=== PATIENT | female | born 1940 | race Caucasian/White ===

== ENCOUNTER 2021-11-02 15:46 | Inpatient (IN) | payer MEDICARE, BC ==
[2021-11-02 16:18] VITALS: BMI 30.9
[2021-11-02] MEDS ORDERED: Dextrose 5% in Water 1,000 ML IV PRN (18:18)
[2021-11-02] MEDS ORDERED: Dextrose 50% Abboject 50 ML SYRINGE SLOW IVP PRN (18:18)
[2021-11-02] MEDS: Furosemide 40 MG/4 ML VIAL SLOW IVP SCH (21:19)
[2021-11-02] MEDS: Heparin 5,000 UNITS/ML VIAL SC SCH (21:19)
[2021-11-02] MEDS: Atorvastatin Calcium 40 MG TAB PO SCH (21:20)
[2021-11-02] MEDS: Carvedilol 12.5 MG TAB PO SCH (21:20)
[2021-11-02] MEDS: rOPINIRole HCl 0.25 MG TAB PO SCH (21:20)
[2021-11-02] MEDS: Gabapentin 300 MG CAP PO SCH (21:54)
[2021-11-02 23:22] LABS: SARS-CoV-2 NAA Rapid Test Not Detected (NotDetected)
[2021-11-03] MEDS: HumaLOG 300 UNITS/3 ML VIAL SC PRN ×2 (05:11→11:59)
[2021-11-03] MEDS: Levothyroxine Sodium 100 MCG TAB PO SCH (05:20)
[2021-11-03 05:39] LABS: #Basophils 0.1 10x3/uL (0.0-0.2); #Eosinphils 0.2 10x3/uL (0.0-0.5); #Monocytes 0.9 10x3/uL (0.0-1.1); #Neutrophils 4.7 10x3/uL (1.5-8.4); %Basophils 0.9 % (0.0-2.0); %Eosinophils 2.4 % (0.0-6.0); %Lymphocytes 11.8 % (18.0-47.0); %Monocytes 13.6 % (0.0-10.0); %Neutrophils 70.3 % (40.0-75.0); Hemoglobin 10.4 g/dL (12.0-15.5); Mean Corpuscular HGB CONC 32.8 g/dL (32.0-36.0); Mean Corpuscular Hemoglobin 30.9 pg (27.0-33.0); Mean Corpuscular Volume 94.1 fl (81.6-98.3); Mean Platelet Volume 11.6 fl (7.4-10.4); Platelet Count 255 10x3/uL (150-450); RBC Distribution Width 13.6 % (11.5-14.5); Red Blood Cell (RBC) Count 3.37 10x6/uL (3.90-5.03); White Blood Cell (WBC) Count 6.7 10x3/uL (3.5-10.5)
[2021-11-03 05:49] LABS: Anion Gap 15 mmol/L (10-20); BUN (Urea Nitrogen) 57 mg/dL (9.8-20.1); Calc. Creatinine Clearance 23 mL/min (70-130); Calcium 8.5 mg/dL (7.8-10.44); Carbon Dioxide 27 mmol/L (23-31); Chloride 101 mmol/L (98-107); Glucose 216 mg/dL (83-110); Potassium 3.3 mmol/L (3.5-5.1); Sodium 140 mmol/L (136-145)
[2021-11-03] MEDS: Aspirin Chewable 81 MG TAB PO SCH (09:08)
[2021-11-03] MEDS: Gabapentin 300 MG CAP PO SCH ×2 (09:08→20:48)
[2021-11-03] MEDS: Amlodipine 10 MG TAB PO SCH (09:10)
[2021-11-03] MEDS: Carvedilol 12.5 MG TAB PO SCH ×2 (09:10→21:03)
[2021-11-03] MEDS: rOPINIRole HCl 0.25 MG TAB PO SCH ×3 (09:10→20:48)
[2021-11-03] MEDS: Furosemide 40 MG/4 ML VIAL SLOW IVP SCH ×2 (09:11→20:54)
[2021-11-03] MEDS: Heparin 5,000 UNITS/ML VIAL SC SCH ×3 (09:11→20:55)
[2021-11-03] MEDS: Lantus 1000 UNITS/10 ML VIAL SC SCH (09:11)
[2021-11-03] MEDS: Cholecalciferol 1,000 UNITS (25 MCG) TAB PO SCH (09:11)
[2021-11-03] MEDS ORDERED: Albuterol Sulfate 2.5 mg/3 ml Neb NEB PRN (11:28)
[2021-11-03] MEDS ORDERED: Fluticasone Propionate Nasal Spray 16 gm Bottle NASAL SCH (11:30)
[2021-11-03] MEDS ORDERED: Potassium Chloride 20 MEQ TAB PO SCH (11:30)
[2021-11-03] MEDS: Albuterol Sulfate 2.5 mg/3 ml Neb NEB SCH ×2 (12:55→19:03)
[2021-11-03] MEDS ORDERED: Latanoprost 0.005% Ophth Soln 2.5 ml Bottle EA EYE SCH (21:00)
[2021-11-03] MEDS: Atorvastatin Calcium 40 MG TAB PO SCH (21:06)
[2021-11-03] MEDS: guaiFENesin ER 600 MG TAB PO SCH (21:08)
[2021-11-04] MEDS: Levothyroxine Sodium 100 MCG TAB PO SCH (05:47)
[2021-11-04 05:57] LABS: Anion Gap 14 mmol/L (10-20); BUN (Urea Nitrogen) 48 mg/dL (9.8-20.1); Calc. Creatinine Clearance 25 mL/min (70-130); Calcium 8.8 mg/dL (7.8-10.44); Carbon Dioxide 29 mmol/L (23-31); Chloride 101 mmol/L (98-107); Glucose 87 mg/dL (83-110); Potassium 3.3 mmol/L (3.5-5.1); Sodium 141 mmol/L (136-145)
[2021-11-04] MEDS ORDERED: Potassium Bicarbonate/Cit Ac 20 MEQ TAB PO SCH (07:45)
[2021-11-04 08:27] VITALS: BP 136/63; TEMP 97.9
[2021-11-04] MEDS: Lantus 1000 UNITS/10 ML VIAL SC SCH (08:36)
[2021-11-04] MEDS: Gabapentin 300 MG CAP PO SCH (08:40)
[2021-11-04] MEDS: Aspirin Chewable 81 MG TAB PO SCH (08:40)
[2021-11-04] MEDS: Amlodipine 10 MG TAB PO SCH (08:41)
[2021-11-04] MEDS: Carvedilol 12.5 MG TAB PO SCH (08:41)
[2021-11-04] MEDS: guaiFENesin ER 600 MG TAB PO SCH (08:41)
[2021-11-04] MEDS: Cholecalciferol 1,000 UNITS (25 MCG) TAB PO SCH (08:41)
[2021-11-04] MEDS: Furosemide 40 MG/4 ML VIAL SLOW IVP SCH (08:41)
[2021-11-04] MEDS: rOPINIRole HCl 0.25 MG TAB PO SCH (08:41)
[2021-11-04] MEDS: Heparin 5,000 UNITS/ML VIAL SC SCH (08:41)
[2021-11-04] MEDS ORDERED: Fluticasone Propionate Nasal Spray 16 gm Bottle NASAL SCH (09:00)
[2021-11-04] MEDS: Albuterol Sulfate 2.5 mg/3 ml Neb NEB SCH (09:05)
== END 2021-11-04 13:05 | disposition home or self-care (01) | DRG 291 ==
LOC: CSHTELE 15:46
PROVIDERS: ADMIT Internal Medicine; ATTEND Internal Medicine
DX: I13.0 Hypertensive heart and chronic kidney disease with heart failure and stage 1 through stage 4 chronic kidney disease, or unspecified chronic kidney disease (principal); I50.33 Acute on chronic diastolic (congestive) heart failure; N18.4 Chronic kidney disease, stage 4 (severe); N17.9 Acute kidney failure, unspecified; Z20.822 Contact with and (suspected) exposure to COVID-19; I25.10 Atherosclerotic heart disease of native coronary artery without angina pectoris; E78.5 Hyperlipidemia, unspecified; E03.9 Hypothyroidism, unspecified; E11.22 Type 2 diabetes mellitus with diabetic chronic kidney disease; E11.42 Type 2 diabetes mellitus with diabetic polyneuropathy; G25.81 Restless legs syndrome; E87.6 Hypokalemia; J45.909 Unspecified asthma, uncomplicated; D63.1 Anemia in chronic kidney disease; Z79.82 Long term (current) use of aspirin; Z95.1 Presence of aortocoronary bypass graft; Z79.4 Long term (current) use of insulin; Z79.890 Hormone replacement therapy; Z79.899 Other long term (current) drug therapy; Z88.6 Allergy status to analgesic agent
CPT/HCPCS: 36415; 36416; 76770; 80048; 85025; 94640; 94760; J1644; J1815; J1940; J7611; U0002